=== PATIENT | female | born 1960 | race Caucasian/White ===

== ENCOUNTER → 2016-05-21 | Outpatient (CLI) | payer OTHER | LOC: RAD 01:30 | DX: Z12.31 Encounter for screening mammogram for malignant neoplasm of breast (principal) ==

== ENCOUNTER 2018-03-14 13:58 | Emergency (ER) | payer OTHER ==
[~2018-03-14] VITALS: Ht 162.6 cm; Wt 74.8 kg
[2018-03-14 14:16] VITALS: BP 150/73
[2018-03-14] MEDS ORDERED: ESTRADIOL 1 MG T1 M1 PO (14:37)
[2018-03-14] MEDS ORDERED: FLUOXETINE HCL20 M1 PO (14:37)
[2018-03-14] MEDS ORDERED: PROTONIX40 M1 PO (14:38)
[2018-03-14] MEDS ORDERED: NORCO 10-325 T1 EACH PO (14:53)
== END 2018-03-14 15:15 | disposition home or self-care (01) ==
LOC: ER 13:58
DX: S52.615S Nondisplaced fracture of left ulna styloid process, sequela (principal); S46.092S Other injury of muscle(s) and tendon(s) of the rotator cuff of left shoulder, sequela; W19.XXXS Unspecified fall, sequela; F17.210 Nicotine dependence, cigarettes, uncomplicated

== ENCOUNTER → 2018-09-04 | Outpatient (CLI) | payer OTHER ==
[~2018-09-04] MED LIST: ESTRADIOL 1 MG T1 M1 PO; FLUOXETINE HCL20 M1 PO; NORCO 10-325 T1 EACH PO; PROTONIX40 M1 PO
== END ==
LOC: NUC 07-13 14:24 → RAD 11:22
DX: M54.5 Low back pain (principal)

== ENCOUNTER → 2020-01-10 | Outpatient (CLI) | payer OTHER | LOC: CAT 09:46 | PROVIDERS: ATTEND Family Medicine | DX: Z13.6 Encounter for screening for cardiovascular disorders (principal); I25.10 Atherosclerotic heart disease of native coronary artery without angina pectoris; E78.00 Pure hypercholesterolemia, unspecified ==